=== PATIENT | female | born 1940 | race Caucasian/White ===

== ENCOUNTER 2020-10-09 01:03 | Observation (INO) | payer MEDICARE, SELFPAY ==
[~2020-10-09] VITALS: Ht 162.6 cm; Wt 64.5 kg
[2020-10-09 01:05] VITALS: BP 164/58
[2020-10-09] MEDS ORDERED: ACETAMINOPHEN TAB 650MG DOSE (2X325MG) PO PRN (02:20)
[2020-10-09] MEDS ORDERED: MAALOX 30 ML SUSP *UDC PO PRN (02:20)
[2020-10-09] MEDS ORDERED: MOM 30ML SUSPENSION UDC PO PRN (02:20)
--- NOTE | 2020-10-09 02:20 | HPEPDOC ---
[facility] Medical History & Physical Date of Admission Oct 09, 2020 Date of Service: Oct 09, 2020 Attending Physician: RAE FLANNERY MD History and Physical TIME OF SERVICE: 145am CHIEF COMPLAINT: paresthesia HISTORY OF PRESENT ILLNESS: A few days ago Ms. Haddad had an episode of right arm and right leg numbness that resolved on its own; she didnt seek medical treatment. Yesterday evening at about 7PM she had another episode of right arm and right leg numbness that lasted for about 1H; she has had CVAs and was concerned that she might be having another one so she went to [facility]. Her vitals were wnl except for a BP of 162/57 & the EKG showed sinus rhythm w a rate of 61. Her blood work was unremarkable except for a Hg of 10.9, MG OF 1.7, Glucose of 109, BUN of 29 and Cr of 1.22. CT of the head revealed atrophic changes with leukomalacia but was negative for an acute process. Transfer was requested to complete the TIA/CVA work-up. At the time of my evaluation she was asymptomatic; she denied having associated dizziness, blurry vision, falling, drooling or dropping any objects. She has had new onset KAY and neck pain for a few days. 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 FAMILY HISTORY: Father & Mother HTN / Daughter colon cancer ALLERGIES: Please see below. HOME MEDICATIONS: Please see below. PHYSICAL EXAMINATION: Vital Signs Date Time Temp Pulse Resp B/P (MAP) Pulse Ox O2 Delivery O2 Flow Rate FiO2 10/09/20 01:05 98.0 69 17 164/58 (93) 97 Room Air GENERAL APPEARANCE: well-nourished and developed / NAD HEENT: EOMI / MM&P CARDIOVASCULAR: RRR/NMRG LUNGS: CTAB on RA ABDOMEN: contour covex MUSCULOSKELETAL: DIOMEDES in back and all 4 extremities INTEGUMENT: she is not flushed or pale NEUROLOGICAL: CN 2-12 intact except she is a bit hard of hearing / speech is not dysarthric / there is a mild nasolabial fold flattening on the right PSYCHIATRIC: A&Ox 3/ able to understand and follow all commands LABORATORY DATA: see HPI IMAGING: see HPI MICROBIOLOGY: respiratory panel neg ASSESSMENT: is an 79 yr old w a hx of CVA, [place] palsy, DLP, Essent ial HTN, RLS, Vertigo, & Hypomagnesemia who has had transient episodes of RUE and RLE paresthesias possibly due to TIA. PLAN: 1 Transient right arm and right leg paresthesia Her SONIA Scale to distinguish btw stroke and stroke mimic score is 0 which ind icates that her symptoms may be due to recrudescence of old stroke from metabolic stress (i.e., hypoglycemia) or a TIA. A CVA is still possible but less likely. Plan: Because her ABCD2 score is 4 she will be admitted under observation on the medical floor to complete the TIA work-up / telemetry /fall precautions / keep head of bed elevated to 30 degrees /aspiration precautions/ will hold off SPL/PT/OT consults because she currently doesnt have any deficits / c/w DAPT / we will also f/u an Echo w bubble study to r/o PFO / f/u lipid panel and A1C 2 Hx of CVA / DLP Plan: c/w DAPT & statin 3 Uncontrolled / Resistant HTN Plan: c/w current doses of chlorthalidone & atenolol & amlopdine (will not increase doses of BB & CCB bcher HR in the 40s on telemetry), increase dose of Lisinopril from 20 to 40mg daily 4 RLS Plan: ropinirole 5 Vertigo Plan: meclizine 6 Hypomagnesemia Plan: f/u Mg & replete PRN 7 KAY Plan: acetaminophen 8 Neck Pain Plan: flector patch 9 Obesity Complicates care DVT px w lovenox (Parth score = 5 points = pharmacological px indicated) Dispo: home after at least 2 midnights stay A-FIB/CHADSVASC A-FIB History Current/History of A-Fib/PAF?: No Current PO Anticoag Therapy: No RAE FLANNERY MD Oct 09, 2020 02:19
[2020-10-09 02:49] LABS: HEMATOCRIT 29.8 % (36.0-47.0); MEAN CORPUSCULAR HEMOGLOBIN 30.7 pg (27.0-33.0); MEAN CORPUSCULAR HGB CONC 33.6 g/dl (32.0-36.5); MEAN CORPUSCULAR VOLUME 91.4 fl (80.0-96.0); PLATELET COUNT, AUTOMATED 157 10^3/uL (150-450); RED BLOOD COUNT 3.26 10^6/uL (4.00-5.40); WHITE BLOOD COUNT 6.1 10^3/uL (4.0-10.0)
[2020-10-09 03:08] LABS: HEMOGLOBIN A1c 6.1 %
[2020-10-09] MEDS ORDERED: MECLIZINE 25 MG TABLET PO PRN (03:15)
[2020-10-09] MEDS ORDERED: DICLOFENAC EPOLAMINE 1.3 % PATCH TOP PRN (03:20)
[2020-10-09 03:25] LABS: CALCIUM LEVEL 8.7 MG/DL (8.8-10.2); CHOLESTEROL RISK RATIO 2.403 (<5); CREATININE FOR GFR 1.11 MG/DL (0.55-1.30); GLOMERULAR FILTRATION RATE 50.2 (>32)
[2020-10-09] MEDS ORDERED: CHLO125TA PO (06:11)
[2020-10-09] MEDS ORDERED: ROPI0.253 PO (06:11)
[2020-10-09] MEDS ORDERED: ATOR40TA75 PO (06:11)
[2020-10-09] MEDS ORDERED: ASPI-161 PO (06:11)
[2020-10-09] MEDS ORDERED: LISI20TA33 PO (06:11)
[2020-10-09] MEDS ORDERED: ATEN50TA2 PO (06:11)
[2020-10-09] MEDS ORDERED: AMLO1TAB25 PO (06:11)
[2020-10-09] MEDS ORDERED: CLOP75TA2 PO (06:11)
[2020-10-09] MEDS ORDERED: FISH1000 PO (06:14)
[2020-10-09] MEDS ORDERED: VITA400C53 PO (06:14)
[2020-10-09] MEDS ORDERED: MAGN400T3 PO (06:14)
[2020-10-09] MEDS ORDERED: D31000TA2 PO (06:14)
[2020-10-09] MEDS ORDERED: ASPIRIN 81 MG CHEW TABLET PO ONE (07:00)
[2020-10-09 07:28] LABS: MAGNESIUM LEVEL 1.8 MG/DL (1.8-2.4)
[2020-10-09] MEDS ORDERED: ISOVUE-370 76% 100ML VIAL As Ordered ONE (07:58)
[2020-10-09 08:00] VITALS: BP 140/63
[2020-10-09] MEDS: lisinopriL 40 MG TAB PO SCH (08:47)
[2020-10-09] MEDS: ENOXAPARIN 40MG/0.4ML SYRINGE (J1650 PER 10MG) SC SCH (08:47)
[2020-10-09] MEDS: CHLORTHALIDONE 25 MG TAB PO SCH (08:48)
[2020-10-09] MEDS: CLOPIDOGREL 75 MG TAB PO SCH (08:48)
[2020-10-09] MEDS: ATORVASTATIN 20 MG TAB PO SCH (08:48)
[2020-10-09] MEDS: atenoloL 50 MG TAB PO SCH (08:48)
--- NOTE | 2020-10-09 08:53 | REPVR ---
PROCEDURE INFORMATION: Exam: CT Angiography Neck With Contrast Exam date and time: 10/09/2020 8:12 AM Age: 79 years old Clinical indication: Weakness and other: CVA TECHNIQUE: Imaging protocol: Computed tomography angiography of the neck with contrast. 3D rendering (Not supervised by radiologist): MIP and/or 3D reconstructed images were created by the technologist. Radiation optimization: All CT scans at this facility use at least one of these dose optimization techniques: automated exposure control; mA and/or kV adjustment per patient size (includes targeted exams where dose is matched to clinical indication); or iterative reconstruction. Contrast material: ISOVUE 370; Contrast volume: 100 ml; Contrast route: INTRAVENOUS (IV); COMPARISON: No relevant prior studies available. FINDINGS: Right common carotid artery: No stenosis. No dissection or occlusion. Right internal carotid artery: No stenosis of the extracranial segment. No dissection or occlusion. Right external carotid artery: No occlusion or stenosis of the origin. Left common carotid artery: No stenosis. No dissection or occlusion. Left internal carotid artery: No stenosis of the extracranial segment. No dissection or occlusion. Left external carotid artery: No occlusion or stenosis of the origin. Right vertebral artery: No stenosis. No dissection or occlusion. Left vertebral artery: No stenosis. No dissection or occlusion. Soft tissues: Normal. No significant soft tissue swelling. Bones/joints: No acute fracture. The cervical spine demonstrates marked degenerative changes at multiple levels. IMPRESSION: No hemodynamically significant stenosis. No occlusion. No dissection. REFERENCES: NASCET CRITERIA. The degree of internal carotid artery stenosis is based on NASCET criteria. Normal is no stenosis. Mild is less than 50% stenosis. Moderate is 50-69% stenosis. Severe is 70% to 99% stenosis. Total occlusion is no detectable patent lumen. Electronically signed by: Marty Pino On 10/09/2020 08:52:42 AM
--- NOTE | 2020-10-09 08:55 | REPVR ---
PROCEDURE INFORMATION: Exam: CT Angiography Head With Contrast, Arteriography Exam date and time: 10/09/2020 8:12 AM Age: 79 years old Clinical indication: Weakness and other: CVA TECHNIQUE: Imaging protocol: Computed tomography angiography of the head with contrast. Exam focused on the arteries. 3D rendering (Not supervised by radiologist): MIP and/or 3D reconstructed images were created by the technologist. Radiation optimization: All CT scans at this facility use at least one of these dose optimization techniques: automated exposure control; mA and/or kV adjustment per patient size (includes targeted exams where dose is matched to clinical indication); or iterative reconstruction. Contrast material: ISOVUE 370; Contrast volume: 100 ml; Contrast route: INTRAVENOUS (IV); COMPARISON: No relevant prior studies available. FINDINGS: ANTERIOR CIRCULATION: Right internal carotid artery: Unremarkable. Intracranial segment is patent with no significant stenosis. No aneurysm. Right middle cerebral artery: Unremarkable. No occlusion or significant stenosis. No aneurysm. Right anterior cerebral artery: Unremarkable. No occlusion or significant stenosis. No aneurysm. Left internal carotid artery: Unremarkable. Intracranial segment is patent with no significant stenosis. No aneurysm. Left middle cerebral artery: Unremarkable. No occlusion or significant stenosis. No aneurysm. Left anterior cerebral artery: Unremarkable. No occlusion or significant stenosis. No aneurysm. POSTERIOR CIRCULATION: Right vertebral artery: Unremarkable. No occlusion or significant stenosis. No aneurysm. Left vertebral artery: Unremarkable. No occlusion or significant stenosis. No aneurysm. Basilar artery: Unremarkable. No occlusion or significant stenosis. No aneurysm. Right posterior cerebral artery: Unremarkable. No occlusion or significant stenosis. No aneurysm. Left posterior cerebral artery: Unremarkable. No occlusion or significant stenosis. No aneurysm. Brain: No definite mass, mass effect, or midline shift. No acute infarction, masses or hemorrhage is seen. No acute intracranial abnormality is identified. Cerebral ventricles: No ventriculomegaly. Bones/joints: Unremarkable. No acute fracture. Soft tissues: Unremarkable. IMPRESSION: 1. No stenosis. No occlusion. No aneurysm. 2. No acute infarction, masses or hemorrhage is seen. No acute intracranial abnormality is identified. 3. [place] Stroke Program Early CT Score (ASPECTS) = 10 Electronically signed by: Marty Pino On 10/09/2020 08:54:31 AM
[2020-10-09 12:00] VITALS: BP 154/66
--- NOTE | 2020-10-09 14:03 | IPNPDOC ---
Text Note Date of Service The patient was seen on 10/09/20. NOTE SUBJECTIVE: - No acute complaints OBJECTIVE: VITALS: see below GENERAL APPEARANCE: well-nourished and developed, NAD HEENT: NCAT, EOMI, MMM CARDIOVASCULAR: RRR, NMRG LUNGS: CTAB on RA ABDOMEN: Normoactive sounds, soft, NTND MUSCULOSKELETAL: DIOMEDES in back and all 4 extremities INTEGUMENT: she is not flushed or pale NEUROLOGICAL: CN 2-12 , speech is not dysarthric, no droops, moving all extremities, sensation intact PSYCHIATRIC: A&Ox 3/ able to understand and follow all commands LABORATORY DATA: reviewed. IMAGING: CTA neck: FINDINGS: Right common carotid artery: No stenosis. No dissection or occlusion. Right internal carotid artery: No stenosis of the extracranial segment. No dissection or occlusion. Right external carotid artery: No occlusion or stenosis of the origin. Left common carotid artery: No stenosis. No dissection or occlusion. Left internal carotid artery: No stenosis of the extracranial segment. No dissection or occlusion. Left external carotid artery: No occlusion or stenosis of the origin. Right vertebral artery: No stenosis. No dissection or occlusion. Left vertebral artery: No stenosis. No dissection or occlusion. Soft tissues: Normal. No significant soft tissue swelling. Bones/joints: No acute fracture. The cervical spine demonstrates marked degenerative changes at multiple levels. IMPRESSION: No hemodynamically significant stenosis. No occlusion. No dissection. CTA head: FINDINGS: ANTERIOR CIRCULATION: Right internal carotid artery: Unremarkable. Intracranial segment is patent with no significant stenosis. No aneurysm. Right middle cerebral artery: Unremarkable. No occlusion or significant stenosis. No aneurysm. Right anterior cerebral artery: Unremarkable. No occlusion or significant stenosis. No aneurysm. Left internal carotid artery: Unremarkable. Intracranial segment is patent with no significant stenosis. No aneurysm. Left middle cerebral artery: Unremarkable. No occlusion or significant stenosis. No aneurysm. Left anterior cerebral artery: Unremarkable. No occlusion or significant stenosis. No aneurysm. POSTERIOR CIRCULATION: Right vertebral artery: Unremarkable. No occlusion or significant stenosis. No aneurysm. Left vertebral artery: Unremarkable. No occlusion or significant stenosis. No aneurysm. Basilar artery: Unremarkable. No occlusion or significant stenosis. No aneurysm. Right posterior cerebral artery: Unremarkable. No occlusion or significant stenosis. No aneurysm. Left posterior cerebral artery: Unremarkable. No occlusion or significant stenosis. No aneurysm. Brain: No definite mass, mass effect, or midline shift. No acute infarction, masses or hemorrhage is seen. No acute intracranial abnormality is identified. Cerebral ventricles: No ventriculomegaly. Bones/joints: Unremarkable. No acute fracture. Soft tissues: Unremarkable. IMPRESSION: 1. No stenosis. No occlusion. No aneurysm. 2. No acute infarction, masses or hemorrhage is seen. No acute intracranial abnormality is identified. 3. [place] Stroke Program Early CT Score (ASPECTS) = 10 MICROBIOLOGY: respiratory panel neg ASSESSMENT: 79 yr old w a hx of CVA, [place] palsy, DLP, Essential HTN, RLS, Vertigo, & Hypomagnesemia who presented for transient episodes of RUE and RLE paresthesias possibly due to TIA with pending MRI. PLAN: 1 Transient right arm and right leg paresthesia: resolved, likely TIA -telemetry -fall precautions -c/w DAPT -f/u an Echo w bubble study -f/u lipid panel -continue statin -CTA head and neck negative for occlusions or stenoses -f/u pending MRI 2 Hx of CVA / DLP -c/w DAPT & statin 3 Uncontrolled / Resistant HTN Plan: c/w current doses of chlorthalidone & atenolol & amlopdine (will not increase doses of BB & CCB bcher HR in the 40s on telemetry), increase dose of Lisinopril from 20 to 40mg daily 4 RLS Plan: ropinirole 5 Vertigo Plan: meclizine 6 Hypomagnesemia Plan: f/u Mg & replete PRN 7 KAY Plan: acetaminophen 8 Neck Pain Plan: flector patch 9 Obesity Complicates care DVT px w lovenox (Parth score = 5 points = pharmacological px indicated) Dispo: pending MRI, likely home after confirmation. VS,Fishbone, I+O VS, Fishbone, I+O Laboratory Tests 10/09/20 02:38 Vital Signs Date Time Temp Pulse Resp B/P (MAP) Pulse Ox O2 Delivery O2 Flow Rate FiO2 10/09/20 08:00 98.4 52 17 140/63 (88) 97 Room Air I&O- Last 24 Hours up to 6 AM 10/09/20 05:59 Intake Total 0 ml Balance 0 ml TERESA GOLDSTEIN MD Oct 09, 2020 14:03
[2020-10-09 16:00] VITALS: BP 144/65
--- NOTE | 2020-10-09 16:36 | REPVR ---
PROCEDURE INFORMATION: Exam: MR Head Without Contrast Exam date and time: 10/09/2020 4:03 PM Age: 79 years old Clinical indication: Weakness, extremity; Bilateral; Additional info: CVA TECHNIQUE: Imaging protocol: MR of the head without contrast. COMPARISON: CT ANGIO HEAD 10/09/2020 8:15 AM FINDINGS: Brain: Nonspecific T2/FLAIR hyperintensities of the periventricular and deep subcortical white matter and pankaj, most likely secondary to chronic small vessel ischemic change. No intracranial hemorrhage or extra-axial fluid collection. No evidence of mass effect or midline shift. No restricted diffusion to suggest acute infarct. Cerebral ventricles: Generalized mild prominence of the ventricles and sulci, likely attributed to parenchymal volume loss. Bones/joints: Unremarkable. Paranasal sinuses: Normal as visualized. No acute sinusitis. Mastoid air cells: No mastoid effusion. Orbital cavity: Unremarkable. Soft tissues: Unremarkable. IMPRESSION: 1. No acute intracranial pathology. 2. Chronic findings, as above. Electronically signed by: Shamir Pavon On 10/09/2020 16:36:19 PM
[2020-10-09 20:00] VITALS: BP 155/65
[2020-10-09] MEDS ORDERED: rOPINIRole 1MG TAB PO SCH (21:00)
[2020-10-09] MEDS ORDERED: rOPINIRole 0.25 MG TAB(REQUIP) PO SCH (21:00)
[2020-10-10] MEDS ORDERED: UNRESOLVED CLARIFICATION ENTRY XX SCH (00:01)
[2020-10-10 04:44] VITALS: BP 144/66
--- NOTE | 2020-10-10 07:43 | DS.PDOC ---
Discharge Summary General Date of Admission Oct 09, 2020 at 01:03 Date of Discharge 10/10/2020 Attending Physician: TERESA GOLDSTEIN MD Discharge Summary PROCEDURES PERFORMED DURING STAY: None ADMITTING DIAGNOSES: TIA DISCHARGE DIAGNOSES: Likely TIA DLP HTN RLS Hypomagnesemia COMPLICATIONS/CHIEF COMPLAINT: TIA. 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 Her vitals were wnl except for a BP of 162/57 & the EKG showed sinus rhythm w a rate of 61. Her blood work was unremarkable except for a Hg of 10.9, MG OF 1.7, Glucose of 109, BUN of 29 and Cr of 1.22. CT of the head revealed atrophic changes with leukomalacia but was negative for an acute process. She was transferred for TIA vs. CVA work-up, essentially for an MRI. HOSPITAL COURSE: On arrival to [facility] her symptoms had resolved and her neurological examination was back to baseline. She denied having associated dizziness, blurry vision, falling, drooling or dropping any objects. She reported having had a recent onset KAY and neck pain for a few days but that had improved. She had a CTA head and neck that were wnl without any stenoses, blockages, significant plaque noted or dissections and MRI brain was without evidence of an acute infarct. She was continued on her ASA and plavix and is now being discharged home to follow up with her PCP. DISCHARGE MEDICATIONS: Please see below. ALLERGIES: Please see below. PHYSICAL EXAMINATION ON DISCHARGE: VITAL SIGNS: Please see below. GENERAL APPEARANCE: well-nourished and developed, NAD HEENT: NCAT, EOMI, MMM CARDIOVASCULAR: RRR, NMRG LUNGS: CTAB on RA ABDOMEN: Normoactive sounds, soft, NTND MUSCULOSKELETAL: DIOMEDES in back and all 4 extremities INTEGUMENT: she is not flushed or pale NEUROLOGICAL: CN 2-12 , speech is not dysarthric, no droops, moving all extremities, sensation intact PSYCHIATRIC: A&Ox 3/ able to understand and follow all commands LABORATORY DATA: Please see below. IMAGING: CTA neck: FINDINGS: Right common carotid artery: No stenosis. No dissection or occlusion. Right internal carotid artery: No stenosis of the extracranial segment. No dissection or occlusion. Right external carotid artery: No occlusion or stenosis of the origin. Left common carotid artery: No stenosis. No dissection or occlusion. Left internal carotid artery: No stenosis of the extracranial segment. No dissection or occlusion. Left external carotid artery: No occlusion or stenosis of the origin. Right vertebral artery: No stenosis. No dissection or occlusion. Left vertebral artery: No stenosis. No dissection or occlusion. Soft tissues: Normal. No significant soft tissue swelling. Bones/joints: No acute fracture. The cervical spine demonstrates marked degenerative changes at multiple levels. IMPRESSION: No hemodynamically significant stenosis. No occlusion. No dissection. CTA head: FINDINGS: ANTERIOR CIRCULATION: Right internal carotid artery: Unremarkable. Intracranial segment is patent with no significant stenosis. No aneurysm. Right middle cerebral artery: Unremarkable. No occlusion or significant stenosis. No aneurysm. Right anterior cerebral artery: Unremarkable. No occlusion or significant stenosis. No aneurysm. Left internal carotid artery: Unremarkable. Intracranial segment is patent with no significant stenosis. No aneurysm. Left middle cerebral artery: Unremarkable. No occlusion or significant stenosis. No aneurysm. Left anterior cerebral artery: Unremarkable. No occlusion or significant stenosis. No aneurysm. POSTERIOR CIRCULATION: Right vertebral artery: Unremarkable. No occlusion or significant stenosis. No aneurysm. Left vertebral artery: Unremarkable. No occlusion or significant stenosis. No aneurysm. Basilar artery: Unremarkable. No occlusion or significant stenosis. No aneurysm. Right posterior cerebral artery: Unremarkable. No occlusion or significant stenosis. No aneurysm. Left posterior cerebral artery: Unremarkable. No occlusion or significant stenosis. No aneurysm. Brain: No definite mass, mass effect, or midline shift. No acute infarction, masses or hemorrhage is seen. No acute intracranial abnormality is identified. Cerebral ventricles: No ventriculomegaly. Bones/joints: Unremarkable. No acute fracture. Soft tissues: Unremarkable. MRI brain: Brain: Nonspecific T2/FLAIR hyperintensities of the periventricular and deep subcortical white matter and pankaj, most likely secondary to chronic small vessel ischemic change. No intracranial hemorrhage or extra-axial fluid collection. No evidence of mass effect or midline shift. No restricted diffusion to suggest acute infarct. Cerebral ventricles: Generalized mild prominence of the ventricles and sulci, likely attributed to parenchymal volume loss. Bones/joints: Unremarkable. Paranasal sinuses: Normal as visualized. No acute sinusitis. Mastoid air cells: No mastoid effusion. Orbital cavity: Unremarkable. Soft tissues: Unremarkable. IMPRESSION: 1. No acute intracranial pathology. 2. Chronic findings, as above. PROGNOSIS: Good ACTIVITY: As tolerated DIET: 2g sodium DISCHARGE PLAN: Home with PCP follow up DISPOSITION: Home DISCHARGE INSTRUCTIONS: Home with PCP follow up ITEMS TO FOLLOWUP ON ON OUTPATIENT: R sided numbness and paraesthesias DISCHARGE CONDITION: Stable TIME SPENT ON DISCHARGE: 40 minutes. Vital Signs/I&Os Vital Signs Date Time Temp Pulse Resp B/P (MAP) Pulse Ox O2 Delivery O2 Flow Rate FiO2 10/10/20 04:44 97.1 51 16 144/66 (92) 97 Room Air I&O- Last 24 Hours up to 6 AM 10/10/20 06:00 Intake Total 700 ml Output Total 950 ml Balance -250 ml Discharge Medications Scheduled Amlodipine Besylate (Amlodipine Besylate) 10 Mg Tablet, 10 MG PO DAILY, (Reported) Aspirin (Aspirin EC) 81 Mg Tablet.dr, 81 MG PO DAILY, (Reported) Atenolol (Atenolol) 50 Mg Tablet, 50 MG PO DAILY, (Reported) Atorvastatin Calcium (Atorvastatin Calcium) 40 Mg Tablet, 40 MG PO DAILY, (Reported) Chlorthalidone (Chlorthalidone) 25 Mg Tablet, 25 MG PO DAILY, (Reported) Cholecalciferol (Vitamin D3) (Vitamin D3) 1,000 Unit Tablet, 1,000 UNITS PO DAILY, (Reported) Clopidogrel Bisulfate (Clopidogrel) 75 Mg Tablet, 75 MG PO DAILY, (Reported) Lisinopril (Lisinopril) 20 Mg Tablet, 20 MG PO DAILY, (Reported) Magnesium Oxide (Magnesium Oxide) 400 Mg Tablet, 400 MG PO DAILY, (Reported) [place]-3 Fatty Acids/Fish Oil (Fish Oil 1,000 mg Capsule) 1 Each Capsule, 1,000 MG PO DAILY, (Reported) Ropinirole HCl (Ropinirole HCl) 0.25 Mg Tablet, 0.25 MG PO QHS, (Reported) Vitamin E (Vitamin E) 400 Unit Capsule, 400 UNIT PO DAILY, (Reported) Allergies Coded Allergies: No Known Allergies (Verified Allergy, Unknown, 10/09/20) TERESA GOLDSTEIN MD Oct 10, 2020 07:43
[2020-10-10] MEDS ORDERED: SLF 3 ML SYR IV PRN (07:55)
[2020-10-10 07:56] VITALS: BP 140/66
[2020-10-10 08:08] VITALS: BP 140/66
[2020-10-10] MEDS: CHLORTHALIDONE 25 MG TAB PO SCH (08:08)
[2020-10-10] MEDS: atenoloL 50 MG TAB PO SCH (08:08)
[2020-10-10] MEDS: CLOPIDOGREL 75 MG TAB PO SCH (08:08)
[2020-10-10] MEDS: ATORVASTATIN 20 MG TAB PO SCH (08:09)
[2020-10-10] MEDS: ENOXAPARIN 40MG/0.4ML SYRINGE (J1650 PER 10MG) SC SCH (08:09)
[2020-10-10] MEDS: lisinopriL 40 MG TAB PO SCH (08:09)
[2020-10-10] MEDS ORDERED: ASPIRIN 81MG ENTERIC TABLET PO SCH (09:00)
[2020-10-10] MEDS ORDERED: SLF 3 ML SYR IV SCH (14:00)
--- NOTE | 2020-10-11 09:07 | ECHO ---
ECHOCARDIOGRAM DATE OF PROCEDURE: 10/09/2020 Age: 79 Gender: Female Height: Weight: REFERRING PHYSICIAN: Farheen Sparks MD PATIENT LOCATION: Room 3212 REASON FOR STUDY: Cerebrovascular accident (CVA). 2D MEASUREMENTS: IVS 1.2 cm LV 4.6 cm LVPW 7.6 cm LA 4.0 cm Aorta 3.1 cm IVC 1.1 cm DOPPLER MEASUREMENT Peak velocity across the aortic valve 2.3 m/s Peak velocity across the LVOT 1.5 m/s Peak gradient across the aortic valve 22 mmHg Mean gradient across the aortic valve 12 mmHg Mitral E 1.0 Mitral A 0.85 with a ratio of 1.2 Maximum tricuspid valve velocity 3.0 m/s 2D COMMENTS: 1. Normal left ventricular size, wall thickness, and normal global left ventricular systolic function. The estimated left ventricular systolic ejection fraction is 60% to 65%. 2. Borderline enlarged left atrium. Normal right atrium and right ventricle. 3. The atrial septum appeared to be normal without evidence of defect or shunt. 4. Normal aortic root. 5. No pericardial effusion seen. 6. Mildly calcified aortic valve with normal leaflet excursion. Mildly calcified mitral annulus with normal anterior mitral valve leaflet motion. Normal tricuspid valve and pulmonic valve. The proximal pulmonary artery branches also appear to be normal. 7. The inferior vena cava was normal in size. Central venous pressure is most likely normal. DOPPLER: Detects moderate tricuspid regurgitation and trace pulmonic regurgitation. The calculated pulmonary artery systolic pressure varies between 40-50 mmHg. Assessment of the left ventricular diastolic function appeared to be normal. IMPRESSION: 1. Normal global left ventricular systolic and diastolic function. 2. Aortic valve sclerosis with mild aortic stenosis, but no aortic regurgitation. 3. Isolated mitral annular calcification. 4. Moderate tricuspid regurgitation with moderate pulmonary hypertension. 5. Not mentioned above, global longitudinal strain/GLS was calculated at -23.7%, normal.
== END 2020-10-10 10:09 | disposition home or self-care (01) ==
LOC: INTOOBSV 01:03 → M PCU 01:03
PROVIDERS: ADMIT Internal Medicine; ATTEND Internal Medicine
DX: G45.9 Transient cerebral ischemic attack, unspecified (principal); E78.49 Other hyperlipidemia; I10 Essential (primary) hypertension; G25.81 Restless legs syndrome; E83.42 Hypomagnesemia; Z86.73 Personal history of transient ischemic attack (TIA), and cerebral infarction without residual deficits; R20.2 Paresthesia of skin; Z79.82 Long term (current) use of aspirin; Z79.899 Other long term (current) drug therapy; E66.9 Obesity, unspecified; M54.2 Cervicalgia
CPT/HCPCS: 36415; 70496; 70498; 70551; 80048; 80061; 83036; 83735; 85027; 93306; G0378; J1650; Q9967

== ENCOUNTER → 2021-08-20 | Outpatient (CLI) | payer MEDICARE ==
[~2021-08-20] MED LIST: AMLO1TAB25 PO; ASPI-161 PO; ATEN50TA2 PO; ATOR40TA75 PO; CHLO125TA PO; CLOP75TA2 PO; FISH1000 PO; LISI20TA33 PO; MAGN400T33 PO; ROPI0.253 PO; VITA100093 PO; VITA400C53 PO
== END ==
LOC: M RAD 07:44
PROVIDERS: ATTEND Psychiatry & Neurology Neurology
DX: G40.109 Localization-related (focal) (partial) symptomatic epilepsy and epileptic syndromes with simple partial seizures, not intractable, without status epilepticus (principal); R90.82 White matter disease, unspecified

== ENCOUNTER → 2023-09-08 | Outpatient (CLI) | payer MEDICARE ==
[~2023-09-08] MED LIST changes: -ASPI-161 PO; +ASPI-615 PO; -ROPI0.253 PO; +ROPI5TAB19 PO
== END ==
LOC: M PLAIMG 12:49
PROVIDERS: ATTEND Internal Medicine Cardiovascular Disease
DX: R94.31 Abnormal electrocardiogram [ECG] [EKG] (principal); I08.3 Combined rheumatic disorders of mitral, aortic and tricuspid valves; I27.23 Pulmonary hypertension due to lung diseases and hypoxia

== ENCOUNTER → 2024-02-04 | Outpatient (CLI) | payer MEDICARE | LOC: M EKG 12:33 | PROVIDERS: ATTEND Internal Medicine Cardiovascular Disease | DX: I48.91 Unspecified atrial fibrillation (principal) ==

== ENCOUNTER 2024-03-13 09:12 | Day surgery (SDC) | payer MEDICARE ==
[~2024-03-13] VITALS: Ht 157.5 cm; Wt 56.2 kg
[~2024-03-13 09:12] MED LIST changes: +GARL580C PO; +GLUC1TAB58 PO; +LEVE500T5 PO; +LISI30TA4 PO; +MV-M1TAB13 PO; +OMEGCAP4 PO; +SPIR-10 PO; +VITA-148 PO
[2024-03-13] MEDS ORDERED: NS 1,000 ML IV SCH (09:35)
[2024-03-13] MEDS ORDERED: VITA-168 PO (10:05)
[2024-03-13] MEDS ORDERED: ACETAMINOPHEN 1000MG 100ML IV BAG As Ordered ONE (10:44)
[2024-03-13] MEDS ORDERED: fentaNYL 100 MCG/2 ML INJECTION As Ordered ONE (10:44)
[2024-03-13] MEDS ORDERED: MIDAZOLAM INJ 2MG/2ML VIAL As Ordered ONE (10:44)
[2024-03-13] MEDS ORDERED: LIDOCAINE 2% 100MG/5ML SDV (FOR ANES.) As Ordered ONE (10:44)
[2024-03-13] MEDS ORDERED: propofoL 200 MG/20 ML VIAL As Ordered ONE (10:44)
[2024-03-13] MEDS: ceFAZolin SOD 2 GM in IV 1 EA IV ONE (11:30)
[2024-03-13] MEDS ORDERED: PHENYLephrine 500MCG 5ML (100MCG/ML) SYRINGE As Ordered ONE (12:17)
[2024-03-13] MEDS: LIDOCAINE 1% SDV 30ML VIAL As Ordered ONE (12:30)
[2024-03-13] MEDS ORDERED: NS 250 ML IV SCH (12:50)
[2024-03-13] MEDS ORDERED: oxyCODONE 5MG TAB PO PRN (12:50)
[2024-03-13] MEDS ORDERED: ONDANSETRON 4MG 2ML VIAL IV PRN (12:50)
[2024-03-13] MEDS ORDERED: fentaNYL 100 MCG/2 ML INJECTION IV PRN (12:50)
[2024-03-13] MEDS ORDERED: HYDROMORPHONE HCL 0.5 MG/ 0.5 ML SYRINGE IV PRN (12:50)
[2024-03-13 13:39] VITALS: BP 133/65; TEMP 98.3; O2SAT 95
== END 2024-03-13 14:25 | disposition home or self-care (01) ==
LOC: M SDC 09:12
PROVIDERS: ATTEND Internal Medicine Cardiovascular Disease
DX: I49.5 Sick sinus syndrome (principal); I44.1 Atrioventricular block, second degree; I48.21 Permanent atrial fibrillation; I11.0 Hypertensive heart disease with heart failure; G47.33 Obstructive sleep apnea (adult) (pediatric); Z86.73 Personal history of transient ischemic attack (TIA), and cerebral infarction without residual deficits; D64.9 Anemia, unspecified; R55 Syncope and collapse; Z79.82 Long term (current) use of aspirin; Z79.899 Other long term (current) drug therapy
CPT/HCPCS: 33207; 71045; 76000; 93005; C1786; C1898; J0131; J0690; J2250; J2371; J3010

== ENCOUNTER 2025-03-13 06:55 | Day surgery (SDC) | payer MEDICARE, MEDICAID ==
[~2025-03-13] VITALS: Ht 149.9 cm; Wt 50.8 kg
[~2025-03-13 06:55] MED LIST changes: +ASPI-255 PO; +PHENYLEPHRINE 10% OPHTH SOL 5ML OS PRN; +VITA-168 PO
[2025-03-13] MEDS: CYCLOPENTOLATE 1% OPHTH SOLN 2 ML BTL OS SCH (09:14)
[2025-03-13] MEDS: OFLOXACIN 0.3 % (OCUFLOX) OPTH SOL 5ML OS ONE (09:14)
[2025-03-13] MEDS: LIDOCAINE 3.5% 1 ML OPHTH TOPICAL GEL OU ONE (09:14)
[2025-03-13] MEDS: TROPICAMIDE 1% OPHTH SOLN 15ML OS SCH (09:15)
[2025-03-13] MEDS: PHENYLEPHRINE 2.5% OPHTH SOL 2ML OS SCH (09:15)
[2025-03-13] MEDS: CEFUROXIME 1 MG/0.1 ML INTRACAMERAL INJ As Ordered ONE (11:55)
[2025-03-13] MEDS: LIDOCAINE 1% SDV 5 ML VIAL As Ordered ONE (11:55)
[2025-03-13] MEDS: BSS IRRIG/VANCO(10MG)/TOBRA(5MG)/EPINEPH(1:1000-0.5CC)500ML BAG-ORONLY As Ordered ONE (11:55)
[2025-03-13 12:28] VITALS: BP 144/65; TEMP 97.6; O2SAT 100
== END 2025-03-13 12:29 | disposition home or self-care (01) ==
LOC: M SDC 06:55
PROVIDERS: ATTEND Ophthalmology
DX: H25.12 Age-related nuclear cataract, left eye (principal); I10 Essential (primary) hypertension; E78.00 Pure hypercholesterolemia, unspecified; G47.30 Sleep apnea, unspecified; Z79.82 Long term (current) use of aspirin; Z79.899 Other long term (current) drug therapy; Z95.0 Presence of cardiac pacemaker
CPT/HCPCS: 66984; 92015; J0697; J3010; V2632

== ENCOUNTER 2025-03-20 07:43 | Day surgery (SDC) | payer MEDICARE, MEDICAID ==
[~2025-03-20] VITALS: Ht 152.4 cm; Wt 51.8 kg
[~2025-03-20 07:43] MED LIST changes: +PHENYLEPHRINE 10% OPHTH SOL 5ML OD PRN; -PHENYLEPHRINE 10% OPHTH SOL 5ML OS PRN
[2025-03-20] MEDS: LIDOCAINE 3.5% 1 ML OPHTH TOPICAL GEL OU ONE (08:05)
[2025-03-20] MEDS: OFLOXACIN 0.3 % (OCUFLOX) OPTH SOL 5ML OD ONE (08:05)
[2025-03-20] MEDS: PHENYLEPHRINE 2.5% OPHTH SOL 2ML OD SCH (08:06)
[2025-03-20] MEDS: CYCLOPENTOLATE 1% OPHTH SOLN 2 ML BTL OD SCH (08:06)
[2025-03-20] MEDS: TROPICAMIDE 1% OPHTH SOLN 15ML OD SCH (08:06)
[2025-03-20] MEDS: LIDOCAINE 1% SDV 5 ML VIAL As Ordered ONE (08:46)
[2025-03-20] MEDS: BSS IRRIG/VANCO(10MG)/TOBRA(5MG)/EPINEPH(1:1000-0.5CC)500ML BAG-ORONLY As Ordered ONE (08:46)
[2025-03-20] MEDS: CEFUROXIME 1 MG/0.1 ML INTRACAMERAL INJ As Ordered ONE (08:46)
[2025-03-20 08:57] VITALS: BP 135/56; TEMP 97.3; O2SAT 97
== END 2025-03-20 09:13 | disposition home or self-care (01) ==
LOC: M SDC 07:43
PROVIDERS: ATTEND Ophthalmology
DX: H25.11 Age-related nuclear cataract, right eye (principal); I10 Essential (primary) hypertension; I48.91 Unspecified atrial fibrillation; R56.9 Unspecified convulsions; G47.30 Sleep apnea, unspecified; Z79.899 Other long term (current) drug therapy; Z79.82 Long term (current) use of aspirin; E78.00 Pure hypercholesterolemia, unspecified; Z95.0 Presence of cardiac pacemaker; Z98.42 Cataract extraction status, left eye
CPT/HCPCS: 66984; 92015; J0697; J3010; V2632